=== PATIENT | female | born 1975 | race Caucasian/White ===

== ENCOUNTER 2020-07-09 17:30 | Emergency (ER) | payer OTHER ==
[~2020-07-09] VITALS: Ht 154.9 cm; Wt 103.2 kg
[~2020-07-09 17:30] MED LIST: CLIN300C9 PO; HYDR-3165 PO
[2020-07-09] MEDS ORDERED: KETOROLAC 30 MG/ML VIAL. IVP ONE (17:45)
--- NOTE | 2020-07-09 18:04 | EKG ---
[facility] ED [facility] [address] [place] [id number] Test Date: 2020-07-09 Test Time: 17:55:18 Pat Name: JHONNY MOSS Department: Room: Gender: F [employer] Supervisor: : 1975 Requested By: KAISER BROWN Order Number: [id number] Reading MD: Measurements Intervals [place] Rate: 49 P: 0 CT: 160 QRS: 127 QRSD: 94 T: -43 QT: 474 QTc: 427 Interpretive Statements SINUS BRADYCARDIA ABNORMAL RIGHT AXIS DEVIATION R-S TRANSITION ZONE IN V LEADS DISPLACED TO THE LEFT QRS(T) CONTOUR ABNORMALITY CONSIDER ANTEROSEPTAL MYOCARDIAL DAMAGE T ABNORMALITY IN INFERIOR LEADS ABNORMAL ECG RI6.02 No previous ECG available for comparison
--- NOTE | 2020-07-09 18:21 | PHYS DOC ---
Past History Past Medical History: Diabetes, Hypertension (RAFI BROWN APRN) Past Surgical History: , Hysterectomy (RAFI BROWN APRN) Alcohol Use: None Drug Use: None (RAFI BROWN APRN) Adult General Chief Complaint Chief Complaint: CHEST WALL PAIN HPI HPI Patient is a 45-year-old female presents to the emergency department via EMS forestry faculty member whom states they were called to [facility] to transfer the patient here for chest pain. Patient states that she had a sudden onset of left-sided chest pain with left arm pain at 630 this morning that she rates a 7/10 on a 1-10 pain scale. Patient denies any diaphoretic episodes, states that she is currently short of breath, denies any nausea vomiting diarrhea or abdominal pain. Patient denies any heart palpitations, denies chest congestion, denies nasal congestion. Patient denies any rashes of her skin. Patient states that she had a stroke in 2000, states she is bed ridden. Patient denies any recent fever or chills, denies any loss of taste or loss of smell. Patient denies any general malaise or body aches. Patient complains of left shoulder pain, patient states that she has had left shoulder pain since her stroke in 2000, patient states that she has complained about this to several people and no one is ever x-rayed her left shoulder. Patient denies any other physical complaints or physical concerns. (RAFI BROWN APRN) Review of Systems Review of Systems 14 body systems of review of systems have been reviewed. See HPI for pertinent positives and negative responses, otherwise all other systems are negative, nonpertinent or noncontributory. (RAFI BROWN APRN) Current Medications Current Medications Medication list from medical others of [facility]: Amlodipine 5 mg daily, chewable aspirin 81 mg daily, Ativan 0.5 mg daily, atorvastatin 40 mg daily, sertraline 10 mg daily, cholecalciferol 1000 units daily, hydralazine 25 mg daily, 200 mg ibuprofen tablet 2 tabs every 6 hours as needed pain, Lexapro 20 mg daily, loperamide 2 mg daily, Lyrica 75 mg daily, Nystop powder 1,000,000 units/g twice daily, oxybutynin ER 5 mg daily, Protonix 40 mg daily, tizanidine 2 mg daily, topiramate 75 mg twice daily, tramadol 50 mg every 6 hours as needed moderate pain, Zofran 4 mg ODT every 6 hours as needed nausea. Current Medications Medications (Trade) Dose Ordered Sig/[facility] Start Time Stop Time Status Last Admin Dose Admin Ketorolac Tromethamine (Toradol 30mg Vial) 30 mg 1X ONCE 07/09/20 17:45 07/09/20 18:02 DC (RAFI BROWN APRN) Allergies Allergies Allergies Coded Allergies Type Severity Reaction Last Updated Verified Iodinated Contrast Media - Oral and Allergy Intermediate 06/28/16 Yes Iodine and Iodide Containing Produc Allergy Intermediate 06/28/16 Yes Sulfa (Sulfonamide Antibiotics) Allergy Intermediate 06/28/16 Yes celecoxib Allergy Intermediate 06/28/16 Yes walnut Allergy Intermediate 06/28/16 Yes (RAFI BROWN APRN) Physical Exam Physical Exam Constitutional: Well developed, well nourished, no acute distress, non-toxic appearance. [] HENT: Normocephalic, atraumatic, bilateral external ears normal, oropharynx moist, no oral exudates, nose normal. [] Eyes: PERRLA, EOMI, conjunctiva normal, no discharge. [] Neck: Normal range of motion, no tenderness, supple, no stridor. [] Cardiovascular:Heart rate regular rhythm, no murmur [] Lungs & Thorax: Bilateral breath sounds clear to auscultation [] Abdomen: Bowel sounds normal, soft, no tenderness, no masses, no pulsatile masses. [] Skin: Warm, dry, no erythema, no rash. [] Back: No tenderness, no CVA tenderness. [] Extremities: No tenderness, no cyanosis, no clubbing, ROM intact, no edema. [] Neurologic: Alert and oriented X 3, normal motor function, normal sensory function, no focal deficits noted. [] Psychologic: Affect normal, judgement normal, mood normal. [] (RAFI BROWN APRN) Current Patient Data Lab Results Laboratory Tests Test 07/09/20 18:45 07/09/20 18:49 [id number]-Hxu-A-Type Natriuretic Peptide 768 pg/mL White Blood Count 6.8 x10^3/uL Red Blood Count 4.08 x10^6/uL Hemoglobin 11.6 g/dL Hematocrit 36.4 % Mean Corpuscular Volume 89 fL Mean Corpuscular Hemoglobin 29 pg Mean Corpuscular Hemoglobin Concent 32 g/dL Red Cell Distribution Width 15.3 % Platelet Count 193 x10^3/uL Neutrophils (%) (Auto) 51 % Lymphocytes (%) (Auto) 34 % Monocytes (%) (Auto) 9 % Eosinophils (%) (Auto) 5 % Basophils (%) (Auto) 1 % Neutrophils # (Auto) 3.5 x10^3uL Lymphocytes # (Auto) 2.3 x10^3/uL Monocytes # (Auto) 0.6 x10^3/uL Eosinophils # (Auto) 0.3 x10^3/uL Basophils # (Auto) 0.1 x10^3/uL Sodium Level 147 mmol/L Potassium Level 4.2 mmol/L Chloride Level 111 mmol/L Carbon Dioxide Level 26 mmol/L Anion Gap 10 Blood Urea Nitrogen 15 mg/dL Creatinine 0.6 mg/dL Estimated GFR (Cockcroft-Gault) 107.6 BUN/Creatinine Ratio 25 Glucose Level 114 mg/dL Calcium Level 8.4 mg/dL Magnesium Level 1.5 mg/dL Total Bilirubin 0.2 mg/dL Aspartate Amino Transf (AST/SGOT) 34 U/L Alanine Aminotransferase (ALT/SGPT) 40 U/L Alkaline Phosphatase 138 U/L Creatine Kinase 63 U/L Creatine Kinase MB (Mass) < 0.5 ng/mL Creatine Kinase MB Relative Index 0.8 % Troponin I Quantitative < 0.017 ng/mL Total Protein 6.2 g/dL Albumin 3.0 g/dL Albumin/Globulin Ratio 0.9 Current Medications Medications (Trade) Dose Ordered Sig/Nilda Route PRN Reason Start Time Stop Time Status Last Admin Dose Admin Ketorolac Tromethamine (Toradol 30mg Vial) 30 mg 1X ONCE IVP 07/09/20 17:45 07/09/20 18:02 DC Magnesium Sulfate 50 ml @ 25 mls/hr 1X ONCE IV 07/09/20 21:45 07/09/20 23:44 07/09/20 21:47 (RAFI BROWN APRN) EKG EKG EKG performed at 1755 by house respiratory therapy staff, shows a sinus bradycardia without other ectopy heart rate 49 bpm, MN interval 0.160, QTc interval 0.427, no acute STEMI, no ACS, no acute ischemia appreciated EKG interpreted by ED attending physician Dr. Castillo (RAFI BROWN APRN) Radiology/Procedures Radiology/Procedures PATIENT: JHONNY MOSS: [id number] : 1975 LOCATION: ER AGE: 45 SEX: F EXAM STATUS: REG ER ORD. PHYSICIAN: RAFI BROWN APRN REASON: LEFT SHOULDER PAIN PROCEDURE: SHOULDER 2+V LEFT Exam: Left shoulder 3 views INDICATION: Left shoulder pain TECHNIQUE: Frontal view of the left shoulder with internal and external rotation and transscapular Y views. Comparisons: None FINDINGS: There is inferior subluxation at the glenohumeral joint. Bone mineralization is normal. No acute or healed fractures. Soft tissues are unremarkable. IMPRESSION: Inferior subluxation at the left glenohumeral joint. Correlate with physical exam. Electronically signed by: Jolene Augustine MD (07/09/2020 8:28 PM) [facility] DICTATED AND SIGNED BY: JOLENE AUGUSTINE MD DATE: 07/09/202024 CC: RAFI BROWN APRN; NANY CASTILLO MD; PCP,UNKNOWN ~MTH0 0 PATIENT: JHONNY MOSS: [id number] : 1975 LOCATION: ER AGE: 45 SEX: F EXAM STATUS: REG ER ORD. PHYSICIAN: RAFI BROWN APRN REASON: CHEST PAIN PROCEDURE: CHEST AP ONLY ADDENDUM #1 Repeat review of the exam demonstrates malpositioning of the left humeral head in relation to the glenohumeral joint concerning for possible dislocation. Dedicated shoulder radiographs is recommended. FOR INTERNAL CODING PURPOSES Critical result: Findings discussed with Rafi MARIE at 07/09/2020 7:20 PM. RESULT CODE: (C) Electronically signed by: Jolene Augustine MD (07/09/2020 7:22 PM) [facility] Exam: Chest one view INDICATION: Chest pain TECHNIQUE: Frontal view of the chest Comparisons: None FINDINGS: Heart is mildly enlarged pulmonary vessels are within normal limits. Hazy opacity in lungs diffusely. No pleural effusion. IMPRESSION: Findings likely related to mild pulmonary edema. Electronically signed by: Jolene Augustine MD (07/09/2020 7:03 PM) [facility]IN [facility] DICTATED AND SIGNED BY: JOLENE AGUUSTINE MD DATE: 07/09/201918 CC: RAFI BROWN APRN; NANY CASTILLO MD; PCP,UNKNOWN ~MTH0 0 (RAFI BROWN APRN) Heart Score C/O Chest Pain: Yes HEART Score for Chest Pain: HEART Score for Chest Pain Response (Comments) Value History Moderately Suspicious 1 ECG Nonspecific Repolarizatio 1 Age >45 - < 65 1 Risk Factors 1 or 2 Risk Factors 1 Troponin < Normal Limit 0 Total 4 Risk Factors: Risk Factors: DM, Current or recent (<one month) smoker, HTN, HLP, family history of CAD, obesity. Risk Scores: Risk Factors: DM, Current or recent (<one month) smoker, HTN, HLP, family history of CAD, obesity. (RAFI BROWN APRN) Course & Med Decision Making Course & Med Decision Making Pertinent Labs and Imaging studies reviewed. (See chart for details) 45-year-old female, vital signs reviewed, presents emergency department complaint of chest pain via EMS from area [facility]. Cardiopulmonary work-up was initiated in the ED. Patient has a history of a stroke of 2000 that is left her bedridden, left-sided deficits, left upper extremity contracture. Patient did report left shoulder pain, chest x-ray concerning for dislocation, left shoulder x-ray was ordered which showed subluxation of the left shoulder, reinterviewed patient again regarding her shoulder pain, patient states she has never had an x-ray of her left shoulder and is complaint for years of her pain and feels it is quite possible has been out a place since her stroke in 2000. Patient's cardiac enzymes were negative, patient reported chest pain relief after Toradol injection. Patient's chest x-ray concerning for cardiomegaly, pulmonary edema. Patient's heart score equals 4. Discussed with patient and recommended admission related to her sinus bradycardia, left shoulder subluxation, chest x-ray suggestive of pulmonary edema and cardiomegaly. Patient was amenable to admission at [facility]. Discussed case with HIMS inpatient physician Dr. Nichols for [facility] who agreed to accept patient under admission to the telemetry unit for the diagnosis of sinus bradycardia, cardiomyopathy, pulmonary edema, chest pain, left shoulder subluxation, with the information he was given by me. EMTALA forms were signed and reviewed by ED attending physician Dr. Castillo, patient was started on 2 g mag sulfate IV per Dr. Nichols's recommendation, patient transferred to [facility] telemetry unit, Dr. Nichols is accepting physician. (RAFI BROWN APRN) Course & Med Decision Making Agree with SWATCH CLERK's plan and disposition per note. (NANY CASTILLO MD) Dragon Disclaimer Dragon Disclaimer This electronic medical record was generated, in whole or in part, using a voice recognition dictation system. (RAFI BROWN APRN) Departure Departure: Impression: Primary Impression: Chest pain Additional Impressions: Cardiomyopathy Pulmonary edema Bradycardia Shoulder subluxation, left Disposition: 02 DC/TRF OTHER SHORT TERM HOS (To [facility] telemetry unit excepted by Dr. Nichols) Condition: GUARDED Referrals: PCP,UNKNOWN (PCP) Problem Qualifiers Primary Impression: Chest pain Chest pain type: unspecified Qualified Codes: R07.9 - Chest pain, u nspecified Additional Impressions: Cardiomyopathy Cardiomyopathy type: unspecified Qualified Codes: I42.9 - Cardiomyopathy, unspecified Pulmonary edema Chronicity: acute Qualified Codes: J81.0 - Acute pulmonary edema Shoulder subluxation, left Encounter type: initial encounter Qualified Codes: S43.002A - Unspecified subluxation of left shoulder joint, initial encounter RAFI BROWN APRN Jul 09, 2020 18:21 NANY CASTILLO MD Jul 09, 2020 22:24
--- NOTE | 2020-07-09 19:05 | RAD ---
ADDENDUM #1 Repeat review of the exam demonstrates malpositioning of the left humeral head in relation to the gle nohumeral joint concerning for possible dislocation. Dedicated shoulder radiographs is recommended. FOR INTERNAL CODING PURPOSES Critical result: Findings discussed with Rafi MARIE at 07/09/2020 7:20 PM. RESULT CODE: (C) Electronically signed by: Jolene Ramos MD (07/09/2020 7:22 PM) [facility] ORIGINAL REPORT Exam: Chest one view INDICATION: Chest pain TECHNIQUE: Frontal view of the chest Comparisons: None FINDINGS: Heart is mildly enlarged pulmonary vessels are within normal limits. Hazy opacity in lungs diffusely. No pleural effusion. IMPRESSION: Findings likely related to mild pulmonary edema. Electronically signed by: Jolene Ramos MD (07/09/2020 7:03 PM) [facility]
[2020-07-09 19:11] LABS: BASO # 0.1 x10^3/uL (0.0-0.2); BASO % 1 % (0-3); EOS # 0.3 x10^3/uL (0.0-0.7); EOS % 5 % (0-3); HEMATOCRIT 36.4 % (36.0-47.0); HEMOGLOBIN 11.6 g/dL (12.0-15.5); LYMPH # 2.3 x10^3/uL (1.0-4.8); LYMPH % 34 % (24-48); MEAN CORPUSCULAR HEMOGLOBIN 29 pg (25-35); MEAN CORPUSCULAR HGB CONC 32 g/dL (31-37); MEAN CORPUSCULAR VOLUME 89 fL (79-100); MONO # 0.6 x10^3/uL (0.0-1.1); MONO % 9 % (0-9); NEUT # 3.5 x10^3uL (1.8-7.7); NEUT % 51 % (31-73); PLATELET COUNT 193 x10^3/uL (140-400); RED BLOOD COUNT 4.08 x10^6/uL (3.50-5.40); RED CELL DISTRIBUTION WIDTH 15.3 % (11.5-14.5); WHITE BLOOD COUNT 6.8 x10^3/uL (4.0-11.0)
[2020-07-09 19:20] LABS: ANION GAP 10 (6-14); BLOOD UREA NITROGEN 15 mg/dL (7-20); BUN/CREATININE RATIO 25 (6-20); CALCIUM 8.4 mg/dL (8.5-10.1); CARBON DIOXIDE 26 mmol/L (21-32); CHLORIDE 111 mmol/L (98-107); CREATININE 0.6 mg/dL (0.6-1.0); GFR 107.6; GLUCOSE 114 mg/dL (70-99); POTASSIUM 4.2 mmol/L (3.5-5.1); SODIUM 147 mmol/L (136-145)
[2020-07-09 19:36] LABS: ALBUMIN/GLOBULIN RATIO 0.9 (1.0-1.7); ALK PHOS 138 U/L (46-116); ALT (SGPT) 40 U/L (14-59); AST (SGOT) 34 U/L (15-37); MAGNESIUM 1.5 mg/dL (1.8-2.4); TOTAL BILIRUBIN 0.2 mg/dL (0.2-1.0); TOTAL PROTEIN 6.2 g/dL (6.4-8.2)
--- NOTE | 2020-07-09 20:30 | RAD ---
Exam: Left shoulder 3 views INDICATION: Left shoulder pain TECHNIQUE: Frontal view of the left shoulder with internal and external rotation and transscapular Y views. Comparisons: None FINDINGS: There is inferior subluxation at the glenohumeral joint. Bone mineralization is normal. No acute or h ealed fractures. Soft tissues are unremarkable. IMPRESSION: Inferior subluxation at the left glenohumeral joint. Correlate with physical exam. Electronically signed by: Jolene Ramos MD (07/09/2020 8:28 PM) [facility]
[2020-07-09 21:19] VITALS: BP 150/77
[2020-07-09] MEDS ORDERED: MAGNESIUM SULFATE 2GM 50 ML IV ONE (21:45)
== END 2020-07-09 22:31 | disposition short-term general hospital (02) ==
LOC: ER 17:30
DX: S43.082A Other subluxation of left shoulder joint, initial encounter (principal); R07.89 Other chest pain; M25.512 Pain in left shoulder; M79.602 Pain in left arm; J81.1 Chronic pulmonary edema; I42.9 Cardiomyopathy, unspecified; E11.9 Type 2 diabetes mellitus without complications; I10 Essential (primary) hypertension; Z90.710 Acquired absence of both cervix and uterus; Z98.890 Other specified postprocedural states; Z91.041 Radiographic dye allergy status; Z88.2 Allergy status to sulfonamides; Z88.8 Allergy status to other drugs, medicaments and biological substances; Z91.018 Allergy to other foods; X58.XXXA Exposure to other specified factors, initial encounter; Y93.89 Activity, other specified; Y92.89 Other specified places as the place of occurrence of the external cause; Y99.8 Other external cause status
CPT/HCPCS: 36415; 71045; 73030; 80053; 82553; 83735; 83880; 84484; 85025; 93005; 96365; 99285; J3475